=== PATIENT | female | born 1995 | race Caucasian/White ===

== ENCOUNTER → 2017-10-29 | Outpatient (CLI) | payer MEDICAID | LOC: FIMAGING 14:29 | PROVIDERS: ATTEND Obstetrics & Gynecology | DX: O26.851 Spotting complicating pregnancy, first trimester (principal); Z3A.13 13 weeks gestation of pregnancy ==

== ENCOUNTER → 2017-12-05 | Outpatient (CLI) | payer MEDICAID | LOC: FIMAGING 10:12 | PROVIDERS: ATTEND Obstetrics & Gynecology | DX: O46.8X2 Other antepartum hemorrhage, second trimester (principal); O36.62X0 Maternal care for excessive fetal growth, second trimester, not applicable or unspecified; Z3A.19 19 weeks gestation of pregnancy; Z98.891 History of uterine scar from previous surgery ==

== ENCOUNTER → 2017-12-31 | Outpatient (CLI) | payer MEDICAID | LOC: FIMAGING 14:37 | PROVIDERS: ATTEND Obstetrics & Gynecology | DX: O99.212 Obesity complicating pregnancy, second trimester (principal); O34.219 Maternal care for unspecified type scar from previous cesarean delivery; Z3A.22 22 weeks gestation of pregnancy ==

== ENCOUNTER → 2018-02-03 | Outpatient (CLI) | payer MEDICAID | LOC: FIMAGING 14:26 | PROVIDERS: ATTEND Obstetrics & Gynecology | DX: Z34.83 Encounter for supervision of other normal pregnancy, third trimester (principal); Z3A.28 28 weeks gestation of pregnancy ==